=== PATIENT | female | born 1995 | race Caucasian/White ===

== ENCOUNTER 2022-08-01 13:06 | Emergency (ER) | payer SELFPAY ==
[2022-08-01 13:15] VITALS: BP 120/78; PULSE 78; RESP 20; TEMP 98.4; BMI 25.0
[2022-08-01] MEDS ORDERED: ACETAMINOPHEN 1000 MG/100 ML BAG IVPB ONE (13:30)
[2022-08-01] MEDS ORDERED: SODIUM CHLORIDE 1,000 ML IV STA (13:30)
[2022-08-01] MEDS ORDERED: METOCLOPRAMIDE HCL INJECTION 10 MG/2 ML VIAL IVPUSH ONE (13:33)
[2022-08-01] MEDS ORDERED: METOCLOPRAMIDE HCL INJECTION 10 MG/2 ML VIAL ONE (13:47)
[2022-08-01] MEDS ORDERED: ACETAMINOPHEN INJECTION 100 ML IVPB ONE (13:47)
[2022-08-01 16:03] LABS: BASO % 0.6 % (0-2.0); EOS % 2.2 % (0-4.5); HEMOGLOBIN 16.8 GM/dL (10.7-15.3); LYMPH % 33.4 % (8-40); MCH 30.6 pg (25.7-33.7); MCHC 34.9 g/dl (32.0-36.0); MEAN CELL VOLUME 87.7 fl (80-96); MEAN PLT VOLUME 8.9 fl (7.5-11.1); MONO % 6.1 % (3.8-10.2); NEUT % 57.7 % (42.8-82.8); PLATELET COUNT 267 10^3/uL (134-434); RBC 5.47 M/mm3 (3.60-5.2); WHITE BLOOD COUNT 10.2 K/mm3 (4.0-10.0)
[2022-08-01 16:19] LABS: POTASSIUM 3.9 mmol/L (3.5-5.1)
[2022-08-01 16:23] LABS: ALBUMIN 4.5 g/dl (3.4-5.0); BLOOD UREA NITROGEN 10.4 mg/dL (7-18); INR 1.01 (0.83-1.09); PROTHROMBIN TIME (PATIENT) 11.7 SEC (9.7-13.0)
[2022-08-01 16:24] LABS: CALCIUM 9.7 mg/dL (8.5-10.1)
[2022-08-01 16:25] LABS: CREATININE 0.6 mg/dL (0.55-1.3)
[2022-08-01 16:26] LABS: ACTIVATED PTT 31.7 SECONDS (25.2-36.5)
[2022-08-01 16:27] LABS: TOT PROT 7.9 g/dl (6.4-8.2)
[2022-08-01 16:30] LABS: BILIRUBIN,TOTAL 0.4 mg/dL (0.2-1)
[2022-08-01 17:14] LABS: URINE APPEARANCE CLEAR; URINE BILIRUBIN NEGATIVE (NEGATIVE); URINE COLOR YELLOW; URINE GLUCOSE (UA) NEGATIVE (NEGATIVE); URINE KETONE NEGATIVE (NEGATIVE); URINE LEUK ESTERASE NEGATIVE (NEGATIVE); URINE NITRITE NEGATIVE (NEGATIVE); URINE PROTEIN NEGATIVE (NEGATIVE); URINE UROBILINOGEN 0.2 mg/dL (0.2-1.0)
== END 2022-08-01 19:01 | disposition left against medical advice (07) ==
LOC: JER 13:06
PROC: 3E033NZ Introduction of Analgesics, Hypnotics, Sedatives into Peripheral Vein, Percutaneous Approach (ICD-10-PCS; principal; 2022-08-01)
PROC: 3E033GC Introduction of Other Therapeutic Substance into Peripheral Vein, Percutaneous Approach (ICD-10-PCS; 2022-08-01)
PROC: 3E0337Z Introduction of Electrolytic and Water Balance Substance into Peripheral Vein, Percutaneous Approach (ICD-10-PCS; 2022-08-01)
DX: O20.9 Hemorrhage in early pregnancy, unspecified (principal); O26.891 Other specified pregnancy related conditions, first trimester; R10.30 Lower abdominal pain, unspecified; R42 Dizziness and giddiness; Z3A.01 Less than 8 weeks gestation of pregnancy
CPT/HCPCS: 36415; 80053; 81003; 84702; 84703; 85025; 85610; 85730; 86850; 86900; 86901; 99284-25